=== PATIENT | female | born 1960 | race Caucasian/White ===

== ENCOUNTER → 2020-05-20 09:27 | Outpatient (BNVA) | payer MEDICARE, SELFPAY | PROVIDERS: Family Provider Family Medicine; Referring Provider Otolaryngology; Visit Provider Specialist | DX: G37.9 Demyelinating disease of central nervous system, unspecified (principal); R63.4 Abnormal weight loss; M79.7 Fibromyalgia; F17.200 Nicotine dependence, unspecified, uncomplicated; R26.81 Unsteadiness on feet | CPT/HCPCS: 20550; 99204; J1030; J3490 ==